=== PATIENT | male | born 1980 | race Caucasian/White ===

== ENCOUNTER 2022-05-28 15:19 | Outpatient (CLI) | payer OTHER, SELFPAY ==
--- NOTE | ~2022-05-28 | XR_ITS ---
EXAMINATION: XR chest 2V 05/28/2022 15:37 INDICATION: Shortness of breath PROCEDURE: PA and lateral views of the chest COMPARISON: No prior studies for comparison. FINDINGS: The lungs are clear. The cardiomediastinal silhouette is within normal limits. There are no pleural effusions. There is no pneumothorax suspected. Multiple mild wedge compression deformiti es of the thoracic spine with accentuated kyphosis. Shallow inspiration. IMPRESSION: 1: NO ACUTE CARDIOPULMONARY DISEASE. Reviewed, dictated and finalized at location A.
[2022-05-28 16:04] LABS: Cholesterol 194 mg/dL (0-200); HDL Direct 44 mg/dL; Triglycerides 57 mg/dL (<150)
[2022-05-28 16:14] LABS: LDL Cholesterol Direct 116 mg/dL
[2022-05-28 16:32] LABS: Prostate Specific Antigen 0.5 ng/mL (< OR = 4.0)
== END 2022-05-28 15:20 | disposition home or self-care (01) ==
LOC: ANHLAB 15:22
PROVIDERS: PCP Family Medicine; Visit Provider Family Medicine
DX: Z13.220 Encounter for screening for lipoid disorders (principal); Z12.5 Encounter for screening for malignant neoplasm of prostate; R06.89 Other abnormalities of breathing
CPT/HCPCS: 36415; 71046; 80061; 84153; G0103

== ENCOUNTER 2022-07-02 07:42 | Outpatient (CLI) | payer OTHER, SELFPAY ==
--- NOTE | 2022-07-14 21:19 | WPDHOMESLEEP ---
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 The patient occasionally awakens from sleep short of breath. He frequently awakens at night with heartburn, belching or cough. He frequently snores loud enough that others complain. He occasionally has trouble sleeping when he has a cold. He occasionally wakes up gasping for air throughout the night. He occasionally has breathing problems at night observed by himself or others. He frequently sweats excessively at night. He rarely has heart palpitations or irregular heartbeats during the night. He occasionally falls asleep during the day but never while driving. He occasionally experiences loss of muscle tone when extremely emotional. He occasionally has trouble at school or work due to sleepiness. He occasionally feels unable to move when waking up or falling asleep. He occasionally experiences vivid dreamlike scenes upon awakening or falling asleep. He rarely feels afraid of going to sleep. He frequently has nightmares. He frequently remembers his dreams. He frequently has thoughts racing through his mind. He frequently feels sad, depressed or anxious. He occasionally has muscular tension. He occasionally notices parts of his body jerk. He occasionally kicks during the night. He frequently has crawling and aching feelings in his legs and constantly has leg pain during the night. He occasionally grinds his teeth during sleep but rarely awakens with morning jaw pain. He is frequently bothered by pain during the day and frequently awakened by pain during the night. He frequently wakes up feeling stiff in the morning. He frequently wakes up with sore or achy muscles. He frequently wakes up with pain in the neck, spine and other joints. He goes to bed between 8-9 p.m. on weekdays and between 10 p.m. to midnight on the weekends. It takes him 30-90 minutes to fall asleep. He wakes up 4-7 times throughout the night to urinate and get a drink. He is able to fall asleep within a few minutes. He wakes up at 7:30 a.m. on weekdays and between 830-9 a.m. on the weekends. He typically gets 4-6 hours of sleep per night. The amount of time he stays in bed after waking up is variable. He currently lives with his and daughter. He does not consume any caffeinated beverages within 2 hours of bedtime. He occasionally engages in physical exercise before bedtime. He will read and watch television before falling asleep. He will take naps in the afternoon or the evening but they are not refreshing. He drinks 4-6 caffeinated beverages per day. He quit smoking 10 months ago. He denies alcohol use. He does use recreational drugs but the drug name was not listed. 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
[2022-07-14 21:43] VITALS: BMI 32.8
== END 2022-07-03 09:17 | disposition home or self-care (01) ==
LOC: ANHCSM 07:46
PROVIDERS: PCP Family Medicine; Visit Provider Family Medicine
DX: R06.81 Apnea, not elsewhere classified (principal); F51.8 Other sleep disorders not due to a substance or known physiological condition; G47.9 Sleep disorder, unspecified
CPT/HCPCS: 95800

== ENCOUNTER 2023-04-13 16:37 | Outpatient (CLI) | payer OTHER, SELFPAY ==
--- NOTE | ~2023-04-13 | CT_ITS ---
EXAMINATION: CT abdomen pelvis wo/w con DATE: 04/13/2023 17:23 INDICATION: Personal history of urinary calculi TECHNIQUE: Computed tomography (CT) of the abdomen and pelvis was performed without intravenous contr ast. CT of the abdomen and pelvis was then performed with a total of 130 mL Omnipaque-350 intravenous contrast using a double-bolus technique for simultaneous opacification of the renal parenchyma and r enal collecting system. The dose-length product was 2698.75 mGy-cm. COMPARISON: 07/13/2019 FINDINGS: Visualized lower lungs are clear. Heart size is normal. No pericardial or pleural effusion. Small sli ding-type hiatal hernia. Mild bilateral gynecomastia. Diffuse hepatic steatosis. There are a couple 1 .5 cm enhancing lesions at the dome of the liver. There are few subcentimeter low-attenuation cysts i n the more caudal liver. Gallbladder, spleen, pancreas and bilateral adrenal glands are normal. Kidne ys enhance symmetrically with no urolithiasis or hydronephrosis. The bilateral ureters are opacified in their entirety with no filling defects or urothelial irregularities. Bladder is normal. There are few scattered colonic diverticula without adjacent inflammatory stranding to suggest diverticulitis. Small bowel and appendix are normal. No free intraperitoneal gas or fluid. No pathologically enlarged abdominal or pelvic lymphadenopathy. Right total hip arthroplasty which appears to been placed over change of old fracture with prior internal fixation. Moderate left hip osteoarthritis with several lo ose bodies at the cotyloid fossa and inferior recess of the joint. Moderate lower thoracic spondylosi s with chronic mild anterior wedging of a few lower thoracic vertebral bodies. IMPRESSION: 1. No urolithiasis or acute intra-abdominal/pelvic process. 2. Diffuse hepatic steatosis with a couple indeterminate 1.5 cm enhancing lesions at the dome of the liver. Would recommend further evaluation with pre and postcontrast MRI. Reviewed, dictated and finalized at location A. IMPRESSION: 1. No urolithiasis or acute intra-abdominal/pelvic process. 2. Diffuse hepatic steatosis with a couple indeterminate 1.5 cm enhancing lesio ns at the dome of the liver. Would recommend further evaluation with pre and po stcontrast MRI.
== END 2023-04-13 16:38 | disposition home or self-care (01) ==
LOC: ANHIMG 16:39
PROVIDERS: PCP Family Medicine; Visit Provider Physician Assistant Medical
DX: R10.9 Unspecified abdominal pain (principal); Z87.442 Personal history of urinary calculi; K76.0 Fatty (change of) liver, not elsewhere classified
CPT/HCPCS: 74178; Q9967

== ENCOUNTER 2023-04-21 11:17 | Outpatient (CLI) | payer OTHER, SELFPAY ==
[2023-04-21 11:58] LABS: Basophils Percent Auto 0.7 % (0.2-1.2); Eosinophils Absolute Auto 0.2 K/mm3 (0-0.3); Eosinophils Percent Auto 3.1 % (0-4.4); Hematocrit 46.8 % (42.0-52.0); Hemoglobin 15.6 g/dL (14.0-18.0); Immature Granulocyte Absolute 0.01 K/mm3 (0.00-0.031); Immature Granulocyte Percent A 0.2 % (0-0.5); Lymphocytes Absolute Auto 3.03 K/mm3 (0.9-3.2); Lymphocytes Percent Auto 49.3 % (18.3-44.2); Mean Corpuscular HGB Conc 33.3 g/dl (32-36); Mean Corpuscular Hemoglobin 31.1 pg (26-34); Mean Corpuscular Volume 93.4 fl (80-100); Mean Platelet Volume 10.5 fl (7.4-10.4); Monocytes Absolute Auto 0.5 K/mm3 (0.1-0.6); Monocytes Percent Auto 7.6 % (2.6-8.5); Neutrophils Absolute Auto 2.4 K/mm3 (1.3-6.7); Neutrophils Percent Auto 39.1 % (45.5-73.1); Platelet Count Result 291 k/mm3 (150-375); Red Blood Count 5.01 M/mm3 (4.6-6.20); Red Cell Distribution Width 12.3 % (11.5-14.5); White Blood Count 6.2 K/mm3 (4.5-10.0)
[2023-04-21 12:12] LABS: Alanine Aminotransferase 20 U/L (6-50); Albumin Level 3.9 g/dL (3.5-5.1); Alkaline Phosphatase 50 U/L (38-126); Anion Gap 6 mmol/L (8-16); Aspartate Amino Transferase 26 U/L (17-59); Bilirubin,Total 0.7 mg/dL (0.2-1.3); Blood Urea Nitrogen 8 mg/dL (9-20); Calcium 8.7 mg/dL (8.4-10.2); Carbon Dioxide 27 mmol/L (22-30); Chloride 104 mmol/L (98-107); Cholesterol 179 mg/dL (0-200); Estimated Glomerular Filt Rate > 60; Glucose 101 mg/dL (65-110); HDL Direct 41 mg/dL; Potassium 4.1 mmol/L (3.4-5.0); Sodium 137 mmol/L (137-145); Triglycerides 96 mg/dL (<150)
[2023-04-21 12:22] LABS: LDL Cholesterol Direct 114 mg/dL
== END 2023-04-21 11:18 | disposition home or self-care (01) ==
PROVIDERS: PCP Family Medicine; Visit Provider Physician Assistant Medical
DX: K76.0 Fatty (change of) liver, not elsewhere classified (principal); R10.9 Unspecified abdominal pain; Z13.220 Encounter for screening for lipoid disorders
CPT/HCPCS: 36415; 80053; 80061; 84443; 85025

== ENCOUNTER 2023-04-28 12:29 | Outpatient (CLI) | payer OTHER, SELFPAY ==
--- NOTE | ~2023-04-28 | MR_ITS ---
EXAMINATION: MR abdomen wo/w con DATE: 04/28/2023 13:44 INDICATION: Liver disease, unspecified. TECHNIQUE: Magnetic resonance imaging (MRI) of the abdomen was performed without and with 20 mL Multi Michael intravenous contrast. COMPARISON: CT abdomen and pelvis 04/13/2023 FINDINGS: There is diffuse hepatic steatosis. In the right hepatic lobe, there are 13 mm and 10 mm masses with interrupted peripheral puddling of contrast, consistent with hemangiomas. There are cysts in the live r measuring up to 8 mm. There is a small sliding hiatal hernia. The gallbladder, spleen, pancreas, ad renal glands, and kidneys are normal. There are no pathologically enlarged lymph nodes. There is no f ree intraperitoneal fluid. There are no dilated loops of bowel. IMPRESSION: 1. Benign hemangiomas in the liver. 2. Diffuse hepatic steatosis. Reviewed, dictated and finalized at location L.
== END 2023-04-28 12:30 | disposition home or self-care (01) ==
PROVIDERS: PCP Family Medicine; Visit Provider Physician Assistant Medical
DX: K76.0 Fatty (change of) liver, not elsewhere classified (principal)
CPT/HCPCS: 74183; A9577

== ENCOUNTER 2023-07-28 02:06 | Day surgery (SDC) | payer OTHER, SELFPAY ==
[2023-07-15 13:16] VITALS: BMI 33.5
[2023-07-28 08:41] VITALS: BP 116/70; PULSE 78; RESP 20; TEMP 36.4; O2SAT 98; BMI 33.7
[2023-07-28] MEDS: LACTATED RINGERS 1,000 ML 150 ML IV CONT (08:58)
--- NOTE | 2023-07-28 09:06 | P.PNAN_ITS ---
Anes - Initial Pre Proc Eval Procedure: Operation Date: 07/28/23 10:00 Proposed Procedures p Screening Colonoscopy - Tres Lyn MD Date/Time: 07/28/23 09:06 Surgeon: Tres Lyn MD Pre Op Diagnosis: family hx colon ca Patient Data Age: 43 Gender: M Height: 1.8 m Weight: 109.6 kg Last Vital Signs Temp 97.6 F 07/28/23 08:41 Pulse 78 07/28/23 08:41 Resp 20 07/28/23 08:41 BP 116/70 07/28/23 08:41 Pulse Ox 98 07/28/23 08:41 O2 Del Method Room Air 07/28/23 08:41 Allergies Allergy/AdvReac Type Severity Reaction Status Date / Time morphine Allergy Intermediate Unknown Verified 07/28/23 08:48 Home Medications Medication Instructions Recorded Confirmed Type No Home Medications 07/15/23 07/28/23 History Patient hx anesthesia problems: none Family hx anesthesia problems: none Results Review: All pre-operative results and documents have been reviewed as part of the pre-op erative evaluation. 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 Family History Family History Other Family history of alcoholism Family history of arthritis Family history of malignant neoplasm Hypertension Social History Social History Smoking status: Former smoker Tobacco type: cigarettes and cigars Smoking end date: 08/30/21 Alcohol intake: current Alcohol use details: about 3 times a year Substance use: current Substance use type: marijuana Living arrangements: with family Spiritual care concerns: No Anes - Eval Final PreProcedure Day of Procedure 07/28/23 09:06 Patient weight: obese Heart: regular rate and rhythm Lungs: clear to auscultation Airway: Mallampati scale class II Neurological: alert and oriented Last oral intake: >/= 8 hours ASA classification: II Emergent: no Anesthetic plan: proceed Anesthesia type and monitoring: general GIVS and standard monitoring Results Review: All pre-operative results and documents have been reviewed as part of the pre- operative evaluation. Informed Consent: The patient's anesthetic plan and its attendant risks and benefits were discussed with the patient/family/POA. Questions were solicited and answers provided to the satisfaction of the patient/family/POA.
--- NOTE | 2023-07-28 09:20 | PM.HPGS ---
History of Present Illness History of Present Illness Consent: Risks, benefits, and alternatives have been discussed and questions answered. Patient agrees to proceed with procedure. Chief complaint: family hx colon ca Narrative: Armani Martinez is a 43 year old male here for first colonoscopy, sister diagnosed with colon cancer at mid 40's Review of Systems Constitutional: Constitutional: Denies headache(s) and Denies weakness Eyes: Eyes: Denies blurry vision ENT: Reports Normal hearing present, Denies headache(s) and Denies neck pain Cardiovascular: Cardiovascular: Denies chest pain and Denies dyspnea Respiratory: Respiratory: Denies dyspnea Gastrointestinal: Gastrointestinal: Reports no additional gastrointestinal complaints Genitourinary: Genitourinary: Denies dysuria Musculoskeletal: Musculoskeletal: Denies neck pain Integumentary/Breasts: Skin/Breast: Denies dry skin Neurologic: Reports Normal hearing present, Denies headache(s) and Denies weakness Psychiatric: Psychiatric: Denies anxiety Endocrine: Endocrine: Denies change in body appearance Hematologic/Lymphatic: Hematologic/Lymphatic: Denies easy bleeding Allergic/Immunologic: Allergic/Immunologic: Denies urticaria PENDING SALE TO [facility] Past Medical History Medical History (Updated 05/12/23 @ 09:34 by Katty Siegel, SOFTWARE TECHNICAL LEAD) Adult BMI 34.0-34.9 kg/sq m Adult BMI > 30 Apnea Decreased breath sounds at right lung base Hepatic hemangioma History of kidney stones Obesity (BMI 30-39.9) Screening for lipid disorders Screening for prostate cancer 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 Family History Family History Other Family history of alcoholism Family history of arthritis Family history of malignant neoplasm Hypertension Social History Social History Smoking status: Former smoker Tobacco type: cigarettes and cigars Smoking end date: 08/30/21 Alcohol intake: current Alcohol use details: about 3 times a year Substance use: current Substance use type: marijuana Living arrangements: with family Spiritual care concerns: No Meds Home Medications and Allergies Home Medications Medication Instructions Recorded Confirmed Type No Home Medications 07/15/23 07/28/23 History Allergies Allergy/AdvReac Type Severity Reaction Status Date / Time morphine Allergy Intermediate Unknown Verified 07/28/23 08:48 Vital Signs Vital Signs - 24 hr 07/28/23 08:41 Temperature 97.6 F Pulse Rate 78 Respiratory Rate 20 Blood Pressure 116/70 Pulse Oximetry 98 Oxygen Delivery Room Air Exam Const: General: comfortable and no acute distress HENMT: Face/Nose/Sinus: Normal nares present Eyes: General: appearance normal, both eyes and all related structures Neck: Neck: no JVD Resp: Auscultation: clear to auscultation bilaterally Cardio: Rate: regular rate Rhythm: regular rhythm GI: Inspection: non-distended GI Palp: Yes Soft to palpation Skin: General skin exam: normal color Neuro: General: gait normal Speech: normal speech Extrem: General: normal to inspection Psych: Mental Status: mental status grossly normal Assessment and Plan Assessment and plan (1) Family hx of colon cancer: Code(s): Z80.0 - Family history of malignant neoplasm of digestive organs Status: Acute Assessment and Plan: colonoscopy
[2023-07-28 09:33] VITALS: BP 144/75; PULSE 78; RESP 16; O2SAT 94
[2023-07-28 09:43] VITALS: BP 133/57; PULSE 66; RESP 14; O2SAT 97
[2023-07-28 09:53] VITALS: BP 126/87; PULSE 70; RESP 15; O2SAT 98
== END 2023-07-28 10:02 | disposition home or self-care (01) ==
PROVIDERS: PCP Family Medicine; Visit Provider Internal Medicine Gastroenterology
PROC: 0DJD8ZZ Inspection of Lower Intestinal Tract, Via Natural or Artificial Opening Endoscopic (ICD-10-PCS; CPT 45378; principal; 2023-07-28 10:00)
DX: Z12.11 Encounter for screening for malignant neoplasm of colon (principal); Z80.0 Family history of malignant neoplasm of digestive organs; E66.9 Obesity, unspecified; Z68.33 Body mass index [BMI] 33.0-33.9, adult; Z87.891 Personal history of nicotine dependence
CPT/HCPCS: 45378; J2704; J7120

== ENCOUNTER 2023-11-06 09:37 | Outpatient (CLI) | payer OTHER, SELFPAY ==
[2023-11-06 10:34] LABS: Immunoglobulin G 1123 mg/dL (700-1600)
[2023-11-06 10:40] LABS: Iron 48 ug/dL (49-181)
[2023-11-06 10:49] LABS: Percent Iron Saturation 16 % (20-50)
[2023-11-06 11:13] LABS: Hepatitis B Surface Antigen Negative (Negative)
[2023-11-06 11:15] LABS: Thyroid Stimulating Hormone Reflex 0.604 uIU/mL (0.465-4.68)
[2023-11-06 11:19] LABS: HAV RESULT Negative (Negative); Hepatitis B Core IgM Result Negative (Negative)
[2023-11-06 11:30] LABS: Hepatitis B Surface Anti Res Negative; Hepatitis C Virus Antibody Negative (Negative)
[2023-11-09 12:47] LABS: Actin Antibody (IgG) <20 U (<20)
[2023-11-09 13:09] LABS: LKM 1 Antibody <=20.0 U (<=20.0)
[2023-11-10 10:52] LABS: Mitochondrial (M2) Ab (IgG) <=20.0 U (<=20.0)
[2023-11-10 12:34] LABS: Hepatitis A Antibody Total Reactive (Nonreactive); Hepatitis B Core Ab Total Nonreactive (Nonreactive)
[2023-11-11 19:17] LABS: Alpha-1-Antitrypsin, QN 136 mg/dL (83-199); Ceruloplasmin 14 mg/dL (18-36)
[2023-11-17 15:28] LABS: ALT 12 U/L (9-46); Alpha-2-Macroglobulin 203 mg/dL (106-279); Apolipoprotein A1 131 mg/dL (94-176); Fibrosis Stage F0; GGT 20 U/L (3-95); Haptoglobin 130 mg/dL (43-212); Necroinflammat Act Grade A0; Total Bilirubin 0.2 mg/dL (0.2-1.2)
== END 2023-11-06 09:38 | disposition home or self-care (01) ==
LOC: ANHLAB 09:40
PROVIDERS: PCP Family Medicine; Visit Provider Nurse Practitioner
DX: E66.9 Obesity, unspecified (principal); K76.0 Fatty (change of) liver, not elsewhere classified; K74.60 Unspecified cirrhosis of liver
CPT/HCPCS: 36415; 80074; 81596; 82103; 82105; 82390; 82728; 82784; 83520; 83540; 83550; 84443; 86038; 86364; 86376; 86704; 86706; 86708

== ENCOUNTER 2024-05-24 09:15 | Outpatient (CLI) | payer OTHER, SELFPAY ==
--- NOTE | ~2024-05-24 | XR_ITS ---
EXAMINATION: XR hip RT 2V w AP pelvis DATE: 05/24/2024 09:39 INDICATION: Right hip pain. TECHNIQUE: An anteroposterior view of the pelvis and 2 views of right hip were obtained. COMPARISON: Right hip radiographs 03/02/2018 FINDINGS: There is a total right hip arthroplasty in near-anatomic alignment. No fracture. There is c hronic deformity of right greater trochanter. No periprosthetic lucency to suggest loosening or infec tion. There is moderate left hip osteoarthritis with loose bodies. IMPRESSION: 1. Total right hip arthroplasty in near-anatomic alignment. 2. Moderate left hip osteoarthritis with loose bodies. Reviewed, dictated and finalized at location A.
--- NOTE | ~2024-05-24 | XR_ITS ---
EXAMINATION: XR lumbar spine 2-3V DATE: 05/24/2024 09:39 INDICATION: Right hip pain. TECHNIQUE: 3 views of lumbar spine were obtained. COMPARISON: Lumbar spine radiograph 07/13/2019 FINDINGS: There is 4 degrees dextrocurvature of lumbar spine. There is mild chronic anterior wedging of T12 vertebral body. There are endplate osteophytes at multiple levels. There is mildly decreased d isc height at T11-T12. There is multilevel mild facet joint osteoarthritis. There is a total right hi p arthroplasty. IMPRESSION: 1. Mild lumbar spondylosis. Reviewed, dictated and finalized at location A. IMPRESSION: 1. Mild lumbar spondylosis.
== END 2024-05-24 09:16 | disposition home or self-care (01) ==
LOC: ANHIMG 09:17
PROVIDERS: PCP Family Medicine; Visit Provider Physician Assistant Medical
DX: M47.896 Other spondylosis, lumbar region (principal); M16.12 Unilateral primary osteoarthritis, left hip; M24.052 Loose body in left hip
CPT/HCPCS: 72100; 73502

== ENCOUNTER 2024-06-14 15:47 | Outpatient (CLI) | payer OTHER, SELFPAY ==
[2024-06-14 16:28] LABS: Basophils Absolute Auto 0.1 K/mm3 (0.0-0.1); Basophils Percent Auto 0.8 % (0.2-1.2); Eosinophils Absolute Auto 0.2 K/mm3 (0-0.3); Hematocrit 46.9 % (42.0-52.0); Hematocrit 47.7 % (42.0-52.0); Hemoglobin 15.4 g/dL (14.0-18.0); Hemoglobin 15.5 g/dL (14.0-18.0); Immature Granulocyte Absolute 0.03 K/mm3 (0.00-0.031); Immature Granulocyte Percent A 0.4 % (0-0.5); Lymphocytes Absolute Auto 3.57 K/mm3 (0.9-3.2); Lymphocytes Percent Auto 42.4 % (18.3-44.2); Mean Corpuscular HGB Conc 32.3 g/dl (32-36); Mean Corpuscular Hemoglobin 30.7 pg (26-34); Mean Corpuscular Hemoglobin 31.3 pg (26-34); Mean Corpuscular Volume 94.6 fl (80-100); Mean Corpuscular Volume 95.2 fl (80-100); Mean Platelet Volume 10.7 fl (7.4-10.4); Mean Platelet Volume 10.8 fl (7.4-10.4); Monocytes Absolute Auto 0.6 K/mm3 (0.1-0.6); Monocytes Percent Auto 6.9 % (2.6-8.5); Neutrophils Percent Auto 47.5 % (45.5-73.1); Platelet Count Result 265 k/mm3 (150-375); Platelet Count Result 279 k/mm3 (150-375); Red Blood Count 4.96 M/mm3 (4.6-6.20); Red Blood Count 5.01 M/mm3 (4.6-6.20); Red Cell Distribution Width 12.2 % (11.5-14.5); Red Cell Distribution Width 12.3 % (11.5-14.5); White Blood Count 8.4 K/mm3 (4.5-10.0)
[2024-06-14 16:40] LABS: Prothrombin Time 13.8 Seconds (11.1-14.7)
[2024-06-14 16:41] LABS: Alanine Aminotransferase 17 U/L (6-50); Albumin Level 4.4 g/dL (3.5-5.1); Alkaline Phosphatase 50 U/L (38-126); Anion Gap 9 mmol/L (4-12); Aspartate Amino Transferase 24 U/L (17-59); Bilirubin,Total 0.8 mg/dL (0.2-1.3); Blood Urea Nitrogen 12 mg/dL (9-20); Calcium 9.2 mg/dL (8.4-10.2); Carbon Dioxide 27 mmol/L (22-30); Chloride 101 mmol/L (98-107); Estimated Glomerular Filt Rate > 60; Glucose 95 mg/dL (65-110); Potassium 4.1 mmol/L (3.4-5.0); Sodium 137 mmol/L (137-145)
[2024-06-14 17:08] LABS: Vitamin D 25 Hydroxy 27.4 ng/mL
[2024-06-14 17:25] LABS: Cholesterol 186 mg/dL (0-200); HDL Direct 48 mg/dL; Triglycerides 78 mg/dL (<150)
[2024-06-14 17:39] LABS: LDL Cholesterol Direct 124 mg/dL
[2024-06-14 18:01] LABS: Prostate Specific Antigen 0.9 ng/mL (< OR = 4.0); Thyroid Stimulating Hormone 0.761 uIU/mL (0.465-4.680)
[2024-06-18 01:29] LABS: Testosterone Free 87.4 pg/mL (35.0-155.0); Testosterone Total 523 ng/dL (250-1100)
== END 2024-06-14 15:48 | disposition home or self-care (01) ==
LOC: ANHLAB 15:48
PROVIDERS: Nurse Practitioner; PCP Family Medicine; Visit Provider Physician Assistant Medical
DX: K76.0 Fatty (change of) liver, not elsewhere classified (principal); E66.9 Obesity, unspecified; E78.5 Hyperlipidemia, unspecified; E55.9 Vitamin D deficiency, unspecified; Z13.220 Encounter for screening for lipoid disorders; Z13.1 Encounter for screening for diabetes mellitus; Z12.5 Encounter for screening for malignant neoplasm of prostate
CPT/HCPCS: 36415; 80053; 80061; 82306; 84153; 84402; 84403; 84443; 85025; 85027; 85610; G0103